=== PATIENT | female | born 1975 | race Caucasian/White ===

== ENCOUNTER 2022-08-22 07:03 | Day surgery (SDC) | payer BC ==
[~2022-08-22 07:03] MED LIST: Lactated Ringers 1,000 ML IV SCH; Sodium Chloride 0.9% 10 ML Syringe FLUSH PRN
[2022-08-22] MEDS ORDERED: Propofol 200 MG/20 ML SDV IV ONE (07:04)
[2022-08-22] MEDS ORDERED: Simethicone Drops 40 MG/0.6 ML 30 ML Bottle ONE (07:57)
== END 2022-08-22 09:26 | disposition home or self-care (01) ==
LOC: FB.SDS 07:03
PROVIDERS: ATTEND Surgery
DX: Q43.8 Other specified congenital malformations of intestine (principal); Z80.0 Family history of malignant neoplasm of digestive organs; Z79.899 Other long term (current) drug therapy; Z88.3 Allergy status to other anti-infective agents; Z98.890 Other specified postprocedural states; Z90.710 Acquired absence of both cervix and uterus
CPT/HCPCS: 00812; A9270-GY; J2704; J7120

== ENCOUNTER 2023-10-28 06:12 | Day surgery (SDC) | payer BC ==
[~2023-10-28 06:12] MED LIST changes: -Lactated Ringers 1,000 ML IV SCH
[2023-10-28] MEDS ORDERED: ceFAZolin 1 GM Vial IVPUSH ONE (07:15)
== END 2023-10-28 07:15 | disposition home or self-care (01) ==
LOC: FB.SDS 06:12
PROVIDERS: ATTEND Surgery
DX: M79.89 Other specified soft tissue disorders (principal); Z53.8 Procedure and treatment not carried out for other reasons
CPT/HCPCS: 82947